=== PATIENT | male | born 1965 | race Caucasian/White ===

== ENCOUNTER 2023-01-11 09:01 | Emergency (ER) | payer OTHER, MEDICARE ==
[~2023-01-11] VITALS: Ht 182.9 cm; Wt 105.7 kg
[2023-01-11 09:22] VITALS: BP 142/96
== END 2023-01-11 10:00 | disposition home or self-care (01) ==
LOC: ER 09:01
DX: R51.9 Headache, unspecified (principal); V89.2XXA Person injured in unspecified motor-vehicle accident, traffic, initial encounter
CPT/HCPCS: 99283

== ENCOUNTER 2024-01-16 12:53 | Emergency (ER) | payer MEDICARE, OTHER ==
[~2024-01-16] VITALS: Ht 182.9 cm; Wt 110.2 kg
[~2024-01-16 12:53] MED LIST: DEPO-TESTO200 MG/18 IM; EUTHYROX25 MC1 PO; EUTHYROX50 MC1 PO; METHADONE HCL1010 PO; PROZAC2010 PO; ZOLPIDEM TART12.5 MG PO
[2024-01-16 14:25] VITALS: BP 167/107
[2024-01-16] MEDS ORDERED: Buprenorphine HCL/Naloxone HCL 8MG-2MG Tab SL ONE (14:35)
[2024-01-16] MEDS ORDERED: SUBOXONE 8 MG-1 EACH SL (14:39)
== END 2024-01-16 14:47 | disposition home or self-care (01) ==
LOC: ER 12:53
DX: F11.93 Opioid use, unspecified with withdrawal (principal); Z76.0 Encounter for issue of repeat prescription; Z79.899 Other long term (current) drug therapy
CPT/HCPCS: 99283; A9270